=== PATIENT | female | born 1990 | race Hispanic/Latino ===

== ENCOUNTER 2023-01-07 14:57 | Emergency (ER) | payer SELFPAY ==
[2023-01-07 15:07] VITALS: BP 175/86; PULSE 81; RESP 16; TEMP 36.7; O2SAT 98; BMI 44.2
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
[2023-01-07] MEDS: OLANZapine ODT 10 MG TAB PO (17:33)
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
[2023-01-07 18:24] LABS: Add Manual Diff / Slide Review NO; Basophils Absolute Auto 100 /uL (0-100); Basophils Percent Auto 0.9 % (0-2); Eosinophils Absolute Auto 0 /uL (0-450); Eosinophils Percent Auto 0.4 % (2-4); Hematocrit 39.7 % (36-46); Hemoglobin 13.6 g/dL (12.0-16.0); Lymphocytes Absolute Auto 1900 /uL (1100-4500); Lymphocytes Percent Auto 18.5 % (25-40); Mean Corpuscular HGB Conc 34.2 % (30-36); Mean Corpuscular Hemoglobin 30.4 PG (26-34); Mean Corpuscular Volume 88.8 fL (80-100); Monocytes Absolute Auto 400 /uL (0-900); Monocytes Percent Auto 4.1 % (3-14); Neutrophils Absolute Auto 7700 /uL (1500-7000); Neutrophils Percent Auto 76.1 % (50-75); Platelet Count 368 X10^3/uL (150-400); Red Blood Cell Count 4.48 X10^6/uL (4.0-5.2); Red Cell Distribution Width 13.7 % (11.6-14.8); White Blood Cell Count 10.2 X10^3/uL (4.5-11.0)
[2023-01-07 18:34] LABS: Acetaminophen < 10 ug/mL (10-30); Salicylate < 1.0 mg/dL (<20)
[2023-01-07 18:35] LABS: Alanine Aminotransferase 47 IU/L (<35); Albumin 4.6 g/dL (3.5-5.0); Albumin Globulin Ratio 1.3 (1.0-2.8); Alkaline Phosphatase 72 U/L (38-126); Aspartate Aminotransferase 46 IU/L (14-36); BUN Creatinine Ratio 11.1 (6-22); Bilirubin Total 0.3 mg/dL (0.2-1.3); Blood Urea Nitrogen 8 mg/dL (7-17); Calcium 9.1 mg/dL (8.4-10.2); Carbon Dioxide 26 mmol/L (22-32); Chloride 102 mmol/L (98-107); Estimated Glomerular Filt Rate > 60 mL/min (>60); Ethanol (ETOH) < 10 mg/dL; Globulin 3.5 g/dL (1.7-4.1); Glucose 89 mg/dL (70-100); HEMOLYSIS < 15 (0-50); Potassium 3.7 mmol/L (3.4-5.1); Sodium 138 mmol/L (137-145); Total Protein 8.1 g/dL (6.3-8.2)
[2023-01-07 18:53] LABS: Pregnancy Test Serum,Qual Negative (Negative)
--- NOTE | 2023-01-07 19:17 | PC.NURSE ---
[employer]ER note: Spoke to Lyric at [facility] to follow up with Cat tomorrow. They will call her tomorrow at 3pm. Told provider Sunil.
[2023-01-07 19:24] LABS: TSH w/ Reflex to FT4 1.33 uIU/mL (0.47-4.68)
== END 2023-01-07 19:13 | disposition home or self-care (01) ==
PROVIDERS: Emergency Provider Student in an Organized Health Care Education/Training Program; PCP Family Medicine
DX: F43.9 Reaction to severe stress, unspecified (principal); R45.851 Suicidal ideations; R63.0 Anorexia; Z72.820 Sleep deprivation
CPT/HCPCS: 36415; 80053; 80320; 80329; 84443; 84703; 85025; 99284; G0480